=== PATIENT | female | born 1940 | race Caucasian/White ===

== ENCOUNTER 2021-06-27 16:07 | Observation (INO) ==
[2021-06-27 17:07] LABS: ABS Basophils 0.1 10^3/ul (0-0.2); ABS Eosinophils 0.4 10^3/ul (0-0.6); ABS Lymphocytes 1.6 10^3/ul (1.0-4.8); ABS Neutrophils 3.9 10^3/ul (1.5-7.7); Eosinophil % 5.6 %; Hematocrit 42 % (35-47); Hemoglobin 14.5 g/dL (12.0-16.0); Lymphocyte % 22.3 %; Mean Corpuscular HGB Conc 34 g/dL (31-36); Mean Corpuscular Hemoglobin 30 pg (27-31); Mean Corpuscular Volume 89 fL (80-97); Mean Platelet Volume 7.9 fL (7.4-10.4); Platelet Count 226 10^3/uL (150-450); Red Blood Count 4.77 10^6 /uL (3.70-4.87); Red Cell Distribution Width 14 % (10-15)
[2021-06-27 17:25] LABS: Albumin/Globulin Ratio 1.3 (1-3); C Reactive Protein 6.26 mg/L (<8.01); Calcium 10.1 mg/dL (8.6-10.3); Globulin 3.1 g/dL (2-4); Potassium 4.4 mmol/L (3.5-5.0); Total Bilirubin 0.6 mg/dL (0.2-1.0); Total Protein 7.1 g/dL (6.4-8.9)
[2021-06-27 17:57] LABS: Urine Appearance Clear; Urine Bilirubin Negative (Negative); Urine Blood 3+ (Negative); Urine Color Straw; Urine Glucose Negative (Negative); Urine Ketones Negative (Negative); Urine Nitrite Negative (Negative); Urine Protein Negative (Negative); Urine Specific Gravity 1.003 (1.002-1.030); Urine Urobilinogen Negative (Negative)
[2021-06-27 17:59] LABS: Urine Bacteria 1+ (Absent); Urine Red Blood Cell Trace(0-2/hpf) (Absent); Urine White Blood Cell Trace(0-5/hpf) (Absent)
[2021-06-27] MEDS ORDERED: cefTRIAXone 2 GM ADDV.VIAL 2 GM in NS 0.9% 100 ml BAG 100 ML IVPB ONE (18:19)
[2021-06-27] MEDS ORDERED: Gentamicin ADULT 160 MG in NS 0.9% 100 ml BAG 100 ML IVPB ONE (18:19)
[2021-06-27] MEDS ORDERED: Ondansetron 4 mg VIAL 2 MG/ML 2 ml VIAL IV PRN (18:59)
[2021-06-27 20:29] LABS: Rapid COVID-19 Molecular Undetected (Undetected)
[2021-06-28 05:07] LABS: ABS Basophils 0.1 10^3/ul (0-0.2); ABS Eosinophils 0.4 10^3/ul (0-0.6); ABS Lymphocytes 1.4 10^3/ul (1.0-4.8); ABS Monocytes 1.1 10^3/ul (0-0.8); ABS Neutrophils 5.4 10^3/ul (1.5-7.7); Eosinophil % 4.7 %; Hematocrit 41 % (35-47); Hemoglobin 13.8 g/dL (12.0-16.0); Lymphocyte % 16.9 %; Mean Corpuscular HGB Conc 34 g/dL (31-36); Mean Corpuscular Hemoglobin 30 pg (27-31); Mean Corpuscular Volume 90 fL (80-97); Mean Platelet Volume 7.4 fL (7.4-10.4); Nucleated Red Blood Cells % 0.1; Platelet Count 191 10^3/uL (150-450); Red Blood Count 4.55 10^6 /uL (3.70-4.87); Red Cell Distribution Width 13 % (10-15); White Blood Count 8.4 10^3/uL (3.5-10.8)
[2021-06-28 05:22] LABS: Calcium 8.9 mg/dL (8.6-10.3); eGFR CKD-EPI 79.9 (>60)
[2021-06-28] MEDS ORDERED: VITAMIN D PO SCH (09:00)
[2021-06-28] MEDS ORDERED: CALCIUM CARBONATE VITAMIN D3 PO SCH (09:00)
[2021-06-28] MEDS ORDERED: Lidocaine 2% PF 5 ML VIAL ONE (10:32)
[2021-06-28] MEDS ORDERED: fentaNYL 100 mcg/2 ml 50 MCG/ML VIAL ONE (10:32)
[2021-06-28] MEDS ORDERED: Midazolam 2 mg/2 ml VIAL 1 mg/ml 2 ml VIAL (2 mg) ONE (11:15)
[2021-06-28] MEDS ORDERED: Iohexol 180 (CONTRAST) 10 ML SDV IV ONE (11:17)
[2021-06-28] MEDS ORDERED: Phenylephrine 40 mcg/mL 10mL (400mcg) SYRINGE ONE (12:10)
[2021-06-28] MEDS ORDERED: Ondansetron 4 mg VIAL 2 MG/ML 2 ml VIAL ONE ×2 (12:15→13:51)
[2021-06-28] MEDS ORDERED: Dexamethasone IV 4 MG/ML VIAL 1 ml VIAL ONE (12:15)
[2021-06-28] MEDS ORDERED: Furosemide 20 mg/2 ml IV VIAL ONE (12:34)
[2021-06-28] MEDS ORDERED: Propofol 10 MG/ML 20 ML BTL ONE ×2 (12:43)
[2021-06-28] MEDS ORDERED: Gentamicin ADULT 140 MG in NS 0.9% 100 ml BAG 100 ML IVPB ONE (14:00)
[2021-06-28] MEDS ORDERED: oxyCODONE/Acetamin 5/325 mg TAB PO PRN (14:12)
[2021-06-28] MEDS ORDERED: DiMENhydriNATE IV 50 mg/ml 1 ml VIAL ONE (14:13)
[2021-06-28] MEDS ORDERED: Lactated Ringers 1000 ml BAG 1,000 ML IV SCH (15:00)
[2021-06-28 16:35] VITALS: BP 148/66
[2021-06-29] MEDS ORDERED: Calcium/Vitamin D TAB 250/125 TAB PO SCH (09:00)
== END 2021-06-28 16:55 | disposition home or self-care (01) ==
LOC: ED 16:07 → SSU 16:07 → SUATTDRO 21:25
PROVIDERS: ADMIT Internal Medicine; ATTEND Internal Medicine